=== PATIENT | female | born 2005 | race Caucasian/White ===

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

== ENCOUNTER 2025-07-04 14:18 | Emergency (ER) | payer OTHER ==
[~2025-07-04] VITALS: Ht 154.9 cm; Wt 58.5 kg
[2025-07-04] MEDS ORDERED: ONDANSETRON HCL 2 MG/ML VIAL IV STA (17:28)
[2025-07-04] MEDS ORDERED: FAMOTIDINE/PF 20 MG/2 ML VIAL IV STA (17:28)
[2025-07-04] MEDS ORDERED: 0.9 % SODIUM CHLORIDE 500 ML IV SCH (17:30)
[2025-07-04] MEDS ORDERED: 0.9 % SODIUM CHLORIDE 500 ML IV ONE (17:30)
[2025-07-04 18:32] LABS: BASO % 0.2 % (0.1-1.2); EOS # 0.11 (0.04-0.54); EOS % 1.2 % (0.7-7.0); LYMPH # 2.15 (1.18-3.74); LYMPH % 23.6 % (19.3-53.1); MEAN PLATELET VOLUME 10.20 fl (9.4-12.4); MONO # 0.36 (0.24-0.82); MONO % 4.0 % (4.7-12.5); NEUT # 6.43 (1.56-6.13); NEUT % 70.7 % (34.0-71.1); RED CELL DISTRIBUTION WIDTH 12.6 % (11.6-14.4)
[2025-07-04] MEDS ORDERED: CEFTRIAXONE SODIUM 1,000 MG VIAL IV SCH (19:32)
[2025-07-04] MEDS ORDERED: FAMOTIDINE/PF 20 MG/2 ML VIAL ONE (19:41)
[2025-07-04] MEDS ORDERED: ONDANSETRON HCL 2 MG/ML VIAL ONE (19:41)
[2025-07-04] MEDS ORDERED: METHYLPREDNISOLONE SOD SUCC 40 MG VIAL ONE (20:34)
[2025-07-04] MEDS ORDERED: CEFTRIAXONE SODIUM 1,000 MG VIAL ONE (20:34)
[2025-07-04] MEDS ORDERED: METHYLPREDNISOLONE SOD SUCC 40 MG VIAL IV SCH (21:00)
[2025-07-04] MEDS ORDERED: CLINDAMYCIN PHOSPHATE 300 MG in 0.9 % SODIUM CHLORIDE 50 ML IV SCH (21:25)
[2025-07-04] MEDS ORDERED: KETOROLAC TROMETHAMINE 30 MG VIAL ONE (21:33)
[2025-07-04] MEDS ORDERED: CLINDAMYCIN PHOSPHATE 150 MG/ML (300mg) ONE (21:33)
[2025-07-04] MEDS ORDERED: KETOROLAC TROMETHAMINE 30 MG VIAL IU STA (21:42)
[2025-07-04 23:37] LABS: ALT/SGPT 14.0 U/L (12-78); AST/SGOT 11.0 U/L (15-37); BILIRUBIN TOTAL 0.41 mg/dL (0.3-1.2); BUN CREA RATIO 14.0 (7.0-25.0); CREATININE SERUM 0.66 mg/dL (0.55-1.02); GFR 115.37; GLOBULINA 3.5 G/DL (2.4-3.5); GLUCOSE FASTING 109.0 mg/dL (65-100); OSMOLALITY SERUM 282.0 MOSM/KG (275-295)
[2025-07-05 02:15] LABS: URINE APPEARANCE Clear; URINE BACTERIA 1085.5 uL (0.0-1933); URINE BILIRRUBIN Negative (NEGATIVE); URINE BLOOD Negative; URINE COLOR Yellow; URINE EPITHELIAL CELLS 68.6 uL (0.0-38.8); URINE GLUCOSE Negative (NEGATIVE); URINE LEUKOCYTE Negative; URINE NITRATE Negative; URINE PROTEIN Negative (NEGATIVE); URINE RBC 3.8 uL (0.0-20.8); URINE UROBILINOGEN 1.0 E.U./dl; URINE WBC 19.4 uL (0.0-23.2)
[2025-07-05 02:17] LABS: URINE CAST 0.00 uL (0.0-1.40); URINE KETONE 80 (NEGATIVE)
[2025-07-05] MEDS ORDERED: ZITHROMAX500 MG PO (03:08)
[2025-07-05] MEDS ORDERED: CLEOCIN HCL300 MG PO (03:08)
== END 2025-07-05 03:38 | disposition home or self-care (01) ==
LOC: ER 14:19 → EMR PED 15:26
PROVIDERS: Pediatrics
DX: J02.8 Acute pharyngitis due to other specified organisms (principal); R59.0 Localized enlarged lymph nodes